=== PATIENT | female | born 1995 | race Caucasian/White ===

== ENCOUNTER → 2019-01-28 | Emergency (ER) | payer SELFPAY ==
[2019-01-28 09:01] VITALS: TEMP 97.5
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
[2019-01-28 11:44] VITALS: BP 139/89; O2SAT 96
== END | disposition left against medical advice (07) ==
LOC: ER 08:45
DX: F41.9 Anxiety disorder, unspecified (principal); F15.10 Other stimulant abuse, uncomplicated; F31.9 Bipolar disorder, unspecified; I45.10 Unspecified right bundle-branch block; F43.10 Post-traumatic stress disorder, unspecified; Z53.29 Procedure and treatment not carried out because of patient's decision for other reasons; Z87.891 Personal history of nicotine dependence

== ENCOUNTER 2020-01-14 22:42 | Emergency (ER) | payer SELFPAY ==
[2020-01-14] MEDS ORDERED: SODIUM CHLORIDE 0.9% 1000ML 1,000 ML IVS PRN (23:00)
[2020-01-14] MEDS ORDERED: ACTIVATED CHARCOAL PELLETS 25 GM BTTL PO ONE (23:00)
[2020-01-14] MEDS ORDERED: SORBITOL 70 % 30 ML UD PO ONE (23:00)
[2020-01-14] MEDS ORDERED: SODIUM CHLORIDE 0.9% (FLUSH) 10 ML SYG IV PRN (23:00)
[2020-01-14 23:14] VITALS: TEMP 97.7
[2020-01-14] MEDS ORDERED: MIDAZOLAM INJ 5 MG/5 ML VIAL ONE (23:21)
[2020-01-14] MEDS ORDERED: MIDAZOLAM INJ 5 MG/5 ML VIAL IM ONE (23:22)
[2020-01-15 01:44] VITALS: O2SAT 99
[2020-01-15] MEDS ORDERED: SODIUM BICARBONATE VIAL 50 MEQ/50 ML VIAL IV ONE (02:00)
[2020-01-15] MEDS ORDERED: SODIUM BICARBONATE IV PRN (02:02)
[2020-01-15] MEDS ORDERED: DEXTROSE 5% IV PRN (02:02)
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
[2020-01-15] MEDS ORDERED: DEXTROSE 5% 1000ML 1,000 ML IVS ONE (02:41)
[2020-01-15] MEDS ORDERED: SODIUM BICARBONATE VIAL 50 MEQ/50 ML VIAL ONE (02:51)
[2020-01-15 03:05] VITALS: BP 119/73
== END 2020-01-15 03:15 | disposition short-term general hospital (02) ==
LOC: ER 22:42
DX: T39.012A Poisoning by aspirin, intentional self-harm, initial encounter (principal); R44.0 Auditory hallucinations; F31.9 Bipolar disorder, unspecified; R00.0 Tachycardia, unspecified; F15.11 Other stimulant abuse, in remission; Z87.891 Personal history of nicotine dependence
CPT/HCPCS: 36600; 80053; 80307; 80320; 80329; 81001; 82803; 82805; 84703; 85025; 85610; 85730; 93005; A4216; J2250; J7030; J7060

== ENCOUNTER 2020-03-21 08:48 | Emergency (ER) | payer SELFPAY ==
[2020-03-21] MEDS ORDERED: predniSONE 20 MG TAB PO ONE (09:01)
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
[2020-03-21 09:04] VITALS: BP 112/67; TEMP 96.2; O2SAT 98
== END 2020-03-21 09:17 | disposition home or self-care (01) ==
LOC: ER 08:48
DX: L20.9 Atopic dermatitis, unspecified (principal); S60.861A Insect bite (nonvenomous) of right wrist, initial encounter; F32.9 Major depressive disorder, single episode, unspecified; Z87.891 Personal history of nicotine dependence; W57.XXXA Bitten or stung by nonvenomous insect and other nonvenomous arthropods, initial encounter; Y92.9 Unspecified place or not applicable

== ENCOUNTER → 2020-05-01 | Outpatient (CLI) | payer OTHER | LOC: LAB.NP 09:32 | PROVIDERS: ATTEND Nurse Practitioner Family | DX: N76.0 Acute vaginitis (principal) ==